=== PATIENT | female | born 1980 ===

== ENCOUNTER → 2019-03-15 | Outpatient (CLI) | payer BC ==
--- NOTE | 2019-03-15 13:08 | KCIC ---
EXAMINATION: Magnetic resonance imaging (MRI) of the cervical spine without contrast 03/15/2019 11:45 AM HISTORY: Cervicalgia. 2 previous anterior fusions. Chronic posterior neck pain extending into the left upper extremity and bilateral upper extremity numbness. TECHNIQUE: Multiplanar multi-weighted MRI of the cervical spine was performed without intravenous contrast using the standard cervical spine protocol. Contrast information: None administered COMPARISON: MRI cervical spine 08/18/2018 FINDINGS: The alignment of the cervical spine is normal. Anterior cervical discectomy and fusion hardware is identified at C4-C6 with hardware predominantly at C5-C6. No evidence for hardware failure. Vertebral bodies demonstrate normal signal intensity on all sequences. No acute fracture is identified; however, if trauma is suspected, a CT scan would be a more sensitive examination for fractures. The craniocervical junction is normal. The visualized portions of the skull base and the posterior fossa are normal. The spinal cord demonstrates normal signal intensity on all sequences. There is disc desiccation at all levels of the cervical spine. No soft tissue abnormality is identified. Normal signal voids are present in the vertebral arteries. C2-C3: The disk is normal in configuration. There is no facet arthropathy. There is no uncovertebral joint disease. There is no neuroforaminal stenosis. There is no spinal canal stenosis. C3-C4: The disk is normal in configuration. There is no facet arthropathy. There is no uncovertebral joint disease. There is no neuroforaminal stenosis. There is no spinal canal stenosis. C4-C5: This level is fused. There is no facet arthropathy. There is no uncovertebral joint disease. There is no neuroforaminal stenosis. There is no spinal canal stenosis. C5-C6: This level is fused. There may be a posterior osteophyte abutting the ventral cord, effacing the ventral thecal sac without significant spinal canal stenosis. There is no facet arthropathy. There is no uncovertebral joint disease. There is no neuroforaminal stenosis. C6-C7: There is a disc bulge. There is no facet arthropathy. There is mild uncovertebral joint disease. There is no significant neuroforaminal stenosis. There is mild spinal canal stenosis. No cord signal alteration or compression. C7-T1: The disk is normal in configuration. There is no facet arthropathy. There is no uncovertebral joint disease. There is no neuroforaminal stenosis. There is no spinal canal stenosis. IMPRESSION: Anterior cervical discectomy and fusion hardware is identified at C5-C6 with osseous fusion of C4-C5. No evidence for hardware failure. Mild degenerative changes of the cervical spine as described in detail above. Electronically signed by: Kristina Crook MD (03/15/2019 1:05 PM) [id number]
== END | disposition home or self-care (01) ==
LOC: KCIC MRI 11:48
DX: M50.223 Other cervical disc displacement at C6-C7 level (principal); M48.02 Spinal stenosis, cervical region; Z98.890 Other specified postprocedural states
CPT/HCPCS: 72141